=== PATIENT | male | born 2000 | race Caucasian/White ===

== ENCOUNTER 2021-07-14 22:55 | Emergency (ER) | payer OTHER ==
[~2021-07-14] VITALS: Ht 172.7 cm; Wt 54.5 kg
[2021-07-14] MEDS ORDERED: CLON-441 PO (23:13)
[2021-07-14] MEDS ORDERED: ARIP10TA8 PO (23:13)
[2021-07-14] MEDS ORDERED: LORA-1000 PO (23:13)
[2021-07-14] MEDS ORDERED: GUAN2TAB14 PO (23:13)
[2021-07-14] MEDS ORDERED: CYPR2SYR3 PO (23:13)
[2021-07-14] MEDS ORDERED: MAGN100T6 PO (23:13)
[2021-07-14] MEDS ORDERED: DIVA-111 PO (23:13)
[2021-07-14] MEDS ORDERED: CLON-592 PO (23:13)
[2021-07-15] MEDS ORDERED: LORazepam 1 MG TABLET PO ONE (01:15)
[2021-07-15] MEDS ORDERED: HALOPERIDOL LACTATE 5 MG/ML VIAL IM ONE (02:30)
[2021-07-15] MEDS ORDERED: DiphenhydrAMINE HCL 50 MG/ML VIAL IM ONE (02:30)
[2021-07-15] MEDS ORDERED: LORazepam 2 MG/ML VIAL IM ONE (05:30)
[2021-07-15] MEDS ORDERED: ClonazePAM 1 MG TABLET PO SCH (09:30)
[2021-07-15] MEDS ORDERED: DIVALPROEX SODIUM 250 MG DR TABLET PO SCH (09:30)
[2021-07-15] MEDS ORDERED: ARIPiprazole 10 MG TABLET PO SCH (09:30)
[2021-07-15 11:24] VITALS: BP 114/61
[2021-07-15] MEDS ORDERED: GABAPENTIN 400 MG CAPSULE PO SCH (16:00)
[2021-07-15] MEDS ORDERED: MELATONIN 5 MG TABLET PO SCH (21:00)
[2021-07-15] MEDS ORDERED: CYPROHEPTADINE HCL 4 MG TABLET PO SCH (21:00)
[2021-07-15] MEDS ORDERED: CloNIDine HCL 0.1 MG TABLET PO SCH (21:00)
== END 2021-07-15 11:15 | disposition home or self-care (01) ==
LOC: EMS 22:59
DX: F84.0 Autistic disorder (principal); R45.6 Violent behavior
CPT/HCPCS: 96372; 99285; J1200; J1630; J2060; Q9967